=== PATIENT | male | born 1955 | race Caucasian/White ===

== ENCOUNTER 2017-01-07 06:29 | Emergency (ER) | payer MEDICAID ==
[2017-01-07] MEDS ORDERED: Sodium Chloride 0.9% 10 ML Syringe FLUSH PRN ×2 (07:43→09:18)
[2017-01-07] MEDS ORDERED: Sodium Chloride 0.9% 1,000 ML IV SCH (07:45)
--- NOTE | 2017-01-07 09:14 | CR ---
Chest 2V HISTORY: Chest pain. Comparison: None. FINDINGS: Cardiac size and pulmonary vessels are normal. The lungs are clear. IMPRESSION: Negative chest.
[2017-01-07] MEDS ORDERED: Iopamidol 612 MG/ML 100 ML Bottle IV PRN (09:18)
[2017-01-07] MEDS ORDERED: Sodium Chloride 0.9% 100 ML IV SCH (09:30)
--- NOTE | 2017-01-07 10:24 | CT ---
Chest Abdomen Pelvis w Cont HISTORY: Weakness, weight loss. Dose: Total DLP 501 COMPARISON: None FINDINGS: Extensive diffuse emphysema. No dense consolidation and or effusion. No adenopathy. 5 mm d ensity right middle lobe indeterminate. Please follow Lazarus criteria below. The pancreas, adrenal glands and kidneys appear unremarkable. Liver demonstrates enlargement measuri ng 19 cm craniocaudal. Mild splenomegaly measuring 13.5 cm screening caudal. No bowel obstruction. C ommon bile duct measures 8 mm no intrahepatic bile duct dilatation. Moderate stool within the colon. Mild bladder wall thickening which is nonspecific. Moderate degenerative change within the spine. Impression: 1. Hepatosplenomegaly. 2. Extensive diffuse emphysema with small nodule right middle lobe. Follow Lazarus criteria below. Lazarus criteria: Solid nodules: Nodule size less than 6 mm * Single and multiple nodules in low risk patient: Romel routine follow-up * Single and multiple nodules in high risk patient:(S) CT at 12 months. Nodule size 6 to 8 mm * Single nodule in low risk patient: CT at 6-12 months, then consider CT at 18-24 months. * Multiple nodules in low risk patient: CT at 3-6 months, then consider CT at 18-24 months. * Single nodule in high risk patient: CT at 6-12 months, then CT at 18-24 months. * Multiple nodules in high risk patient: CT at 3-6 months, then CT at 18-24 months. Nodule size greater than 8 mm * Single nodule in both low and high risk patient: Consider CT, PET/CT, or tissue sampling at 3 mon ths. * Multiple nodules in low risk patient: CT at 3-6 months, then consider CT at 18-24 months. * Multiple nodules in high risk patient: CT at 3-6 months, then CT at 18-24 months. Subsolid nodules: * Nodule size less than 6 mm * Single groundglass, part solid: No routine follow-up. * Multiple: CT at 3-6 months. If stable consider CT at 2 and 4 years. * Nodule size greater than or equal to 6 mm. * Single groundglass: CT at 6-12 months to confirm persistence, then CT at every 2 years until 5 ye ars. * Single part solid: CT at 3-6 months to confirm persistence. If unchanged and solid component juan ins less than 6 mm, annual CT should be performed for 5 years. * Multiple: CT at 3-6 months. Subsequent management based on the most suspicious nodules. Implications for patient care 1. These guidelines applied to incidental nodules, which can be managed according to the specific re commendations. 2. These guidelines do not apply to patient's younger than 35 years, immunocompromised patients, or patients with cancer. 3. For lung cancer screening, adherence to the existing [employer] lung CT scan s creening reporting and data system (lung RADS )guidelines is recommended.
[2017-01-07 11:28] VITALS: BP 117/57
--- NOTE | 2017-01-07 12:55 | EDM.PDOC ---
ED HPI GENERAL MEDICAL PROBLEM - General Chief Complaint: General Stated Complaint: WEAK Time Seen by Provider: 01/07/17 07:18 Source of Information: Reports: Patient, Family (Was to the patient sons Derrick Owen who said he didn't know much about him and another son who actually works with the patient.) History Limitations: Reports: No Limitations - History of Present Illness INITIAL COMMENTS - FREE TEXT/NARRATIVE: This is a 61-year-old white male here because of weakness. 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 His son said that yesterday he seemed to sort of fade out while they were working. He thought his father was dehydrated. He hasn't been drinking much water very much the patient says he eats every day however and drinks plenty. He's wondering if maybe he had a fever. Son thinks he doesn't take in very much and was exhausted yesterday. Later the history was given that he couldn't get off the toilet this morning. His son said that he's lost 10 or 15 pounds in the past 2 weeks. The patient admits to not eating or drinking very much. He says otherwise he feels like he's okay. He denies any alcohol use. He denies any pain anywhere. The history was also given to the nurses that he just isn't taking care of himself anymore. - Related Data Allergies Allergy/AdvReac Type Severity Reaction Status Date / Time No Known Allergies Allergy Verified 01/07/17 07:00 Home Meds: Home Meds NK [No Known Home Meds] 01/07/17 [History] Past Medical History - Past Health History Medical/Surgical History: Denies Medical/Surgical History - Infectious Disease History Infectious Disease History: Reports: Chicken Pox, Measles, Mumps Social & Family History - Tobacco Use Smoking Status *Q: Current Every Day Smoker Years of Tobacco use: 50 Packs/Tins Daily: 0.5 - Caffeine Use Caffeine Use: Reports: Coffee, Soda - Recreational Drug Use Recreational Drug Use: Yes Drug Use in Last 12 Months: Yes Recreational Drug Type: Reports: Marijuana/Hashish Recreational Drug Use Frequency: Rarely ED ROS GENERAL - Review of Systems Review Of Systems: See Below Constitutional: Reports: Weakness HEENT: Reports: No Symptoms Respiratory: Reports: No Symptoms Cardiovascular: Reports: No Symptoms Endocrine: Reports: No Symptoms GI/Abdominal: Reports: No Symptoms : Reports: No Symptoms Musculoskeletal: Reports: No Symptoms Skin: Reports: No Symptoms Neurological: Reports: No Symptoms Psychiatric: Reports: No Symptoms Hematologic/Lymphatic: Reports: No Symptoms Immunologic: Reports: No Symptoms ED EXAM, GENERAL - Physical Exam Exam: See Below Exam Limited By: No Limitations General Appearance: Alert, Thin (He is thin but muscular), Other (He is a moderately disheveled individual however on exam he looks more like a working man who just hasn't bathed in a day or 2.) Eye Exam: Bilateral Eye: EOMI, Normal Inspection, PERRL Ears: Normal External Exam Nose: Normal Inspection Throat/Mouth: Normal Inspection, Normal Oropharynx (Mucous membranes are moist) Head: Atraumatic Neck: Normal Inspection, Supple, Non-Tender Respiratory/Chest: Lungs Clear, Normal Breath Sounds Cardiovascular: Normal Peripheral Pulses, Regular Rate, Rhythm, No Murmur GI/Abdominal: Soft, Non-Tender Back Exam: Normal Inspection Extremities: Normal Inspection Neurological: Alert (He is alert speaks in a normal voice. There's no evidence of any lethargy.), Oriented, CN II-XII Intact, Normal Cognition, No Motor/ Sensory Deficits, Other Psychiatric: Normal Affect, Normal Mood Skin Exam: Warm, Dry, Intact, Normal Color Course - Vital Signs Last Recorded V/S: Last Vital Signs Temp 36.6 C 01/07/17 11:27 Pulse 76 01/07/17 11:27 Resp 14 01/07/17 11:27 BP 117/57 L 01/07/17 11:27 Pulse Ox 93 L 01/07/17 11:27 - Orders/Labs/Meds Orders: Active Orders 24 hr Category Date Time Status EKG Documentation Completion [RC] ASDIRECTED Care 01/07/17 07:43 Active Saline Lock Insert [OM.PC] Urgent Oth 01/07/17 07:43 Ordered EKG 12 Lead [EK] Urgent Ther 01/07/17 07:43 Ordered Labs: Laboratory Tests 01/07/17 01/07/17 01/07/17 Range/Units 07:43 07:57 07:57 WBC 12.4 H (4.5-11.0) K/uL RBC 4.13 L (4.30-5.90) M/uL Hgb 12.0 (12.0-15.0) g/dL Hct 36.5 L (40.0-54.0) % MCV 88 (80-98) fL MCH 29 (27-31) pg MCHC 33 (32-36) % Plt Count 256 (150-400) K/uL Neut % (Auto) 86 H (36-66) % Lymph % (Auto) 8 L (24-44) % Merrick % (Auto) 6 (2-6) % Eos % (Auto) 0 L (2-4) % Baso % (Auto) 0 (0-1) % Sodium 130 L (140-148) mmol/L Potassium 3.7 (3.6-5.2) mmol/L Chloride 94 L (100-108) mmol/L Carbon Dioxide 27 (21-32) mmol/L Anion Gap 12.7 (5.0-14.0) mmol/L BUN 18 (7-18) mg/dL Creatinine 1.1 (0.8-1.3) mg/dL Est Cr Clr Drug Dosing 64.41 mL/min Estimated GFR (MDRD) > 60 (>60) Glucose 125 H (74-106) mg/dL Calcium 8.3 L (8.5-10.1) mg/dL Total Bilirubin 0.7 (0.2-1.0) mg/dL AST 43 H (15-37) U/L ALT 45 (12-78) U/L Alkaline Phosphatase 101 (46-116) U/L Troponin I (0.000-0.056) ng/mL Total Protein 7.1 (6.4-8.2) g/dL Albumin 3.0 L (3.4-5.0) g/dL Globulin 4.1 H (2.3-3.5) g/dL Albumin/Globulin Ratio 0.7 L (1.2-2.2) Urine Color Yellow Urine Appearance Slightly cloudy Urine pH 5.0 (4.5-8.0) Ur Specific [place] 1.020 (1.008-1.030) Urine Protein 30 H (NEGATIVE) mg/dL Urine Glucose (UA) Normal (NEGATIVE) mg/dL Urine Ketones Negative (NEGATIVE) mg/dL Urine Occult Blood Large (NEGATIVE) Urine Nitrite Negative (NEGAITVE) Urine Bilirubin Small (NEGATIVE) Urine Urobilinogen 1 (NORMAL) mg/dL Ur Leukocyte Esterase Negative (NEGATIVE) Urine RBC 5-10 H (0-5) Urine WBC 0-5 (0-5) Ur Epithelial Cells Not seen Amorphous Sediment Moderate Urine Bacteria Not seen Urine Mucus Few 01/07/17 Range/Units 09:12 WBC (4.5-11.0) K/uL RBC (4.30-5.90) M/uL Hgb (12.0-15.0) g/dL Hct (40.0-54.0) % MCV (80-98) fL MCH (27-31) pg MCHC (32-36) % Plt Count (150-400) K/uL Neut % (Auto) (36-66) % Lymph % (Auto) (24-44) % Merrick % (Auto) (2-6) % Eos % (Auto) (2-4) % Baso % (Auto) (0-1) % Sodium (140-148) mmol/L Potassium (3.6-5.2) mmol/L Chloride (100-108) mmol/L Carbon Dioxide (21-32) mmol/L Anion Gap (5.0-14.0) mmol/L BUN (7-18) mg/dL Creatinine (0.8-1.3) mg/dL Est Cr Clr Drug Dosing mL/min Estimated GFR (MDRD) (>60) Glucose (74-106) mg/dL Calcium (8.5-10.1) mg/dL Total Bilirubin (0.2-1.0) mg/dL AST (15-37) U/L ALT (12-78) U/L Alkaline Phosphatase (46-116) U/L Troponin I 0.070 H* (0.000-0.056) ng/mL Total Protein (6.4-8.2) g/dL Albumin (3.4-5.0) g/dL Globulin (2.3-3.5) g/dL Albumin/Globulin Ratio (1.2-2.2) Urine Color Urine Appearance Urine pH (4.5-8.0) Ur Specific [place] (1.008-1.030) Urine Protein (NEGATIVE) mg/dL Urine Glucose (UA) (NEGATIVE) mg/dL Urine Ketones (NEGATIVE) mg/dL Urine Occult Blood (NEGATIVE) Urine Nitrite (NEGAITVE) Urine Bilirubin (NEGATIVE) Urine Urobilinogen (NORMAL) mg/dL Ur Leukocyte Esterase (NEGATIVE) Urine RBC (0-5) Urine WBC (0-5) Ur Epithelial Cells Amorphous Sediment Urine Bacteria Urine Mucus Meds: Medications Discontinued Medications Generic Name Dose Route Start Last Admin Trade Name Freq PRN Reason Stop Dose Admin Sodium Chloride 1,000 mls @ 999 mls/hr 01/07/17 07:45 01/07/17 07:59 Normal Saline IV 999 mls/hr ASDIRECTED KASSIDY Administration Sodium Chloride 100 mls @ 3.5 mls/sec 01/07/17 09:30 01/07/17 09:29 Normal Saline IV 01/07/17 23:00 3 mls/sec ASDIRECTED KASSIDY Administration Iopamidol 100 ml 01/07/17 09:18 01/07/17 09:29 Isovue-300 (61%) IV 01/08/17 09:19 100 ml . DIRECTED PRN Administration RADIOLOGY EXAM Sodium Chloride 10 ml 01/07/17 07:43 01/07/17 07:59 Saline Flush FLUSH 10 ml ASDIRECTED PRN Administration Keep Vein Open Sodium Chloride 10 ml 01/07/17 09:18 01/07/17 09:26 Saline Flush FLUSH 01/07/17 23:00 10 ml ASDIRECTED PRN Administration Keep Vein Open - Re-Assessments/Exams Free Text/Narrative Re-Assessment/Exam: 01/07/17 17:37 Orthostatics were negative on this patient. The nurse noted that he walked around without any difficulties. 01/07/17 17:40 An EKG shows normal sinus rhythm 76 beats per minute there is an occasional PAC. There is voltage criteria for LVH. I do not see any ST elevation. An IV was established he was given 1 L of IV normal saline as a bolus. Afterwards labs were evaluated and I don't see any pre-renal azotemia. A chest x-ray appeared to indicate COPD changes but no evidence of any infiltrate. Because of the patient's history of weight loss as well as hematuria and his smoking history and the fact that he probably will not get close followup we went ahead and did an chest abdomen and pelvic CT. CT showed some hepatosplenomegaly to extensive diffuse emphysema and a small nodule in the right middle lobe. That nodule was 5 mm and it was recommended that a CT repeated be repeated in about 6 months. All labs and CT were reviewed with the patient. The most significant thing that I see is the hematuria. I believe the patient needs a cystoscopy. Despite normal labs and a negative orthostatic test I think the patient probably has a little bit volume depleted. He's received some IV saline. My recommendation is that he increase his both food and water intake. I don't think he needs hospitalization. The patient's treatment course was prolonged due to to a heavy patient load in conjunction with a computer failure. At the time of his discharge the patient was very anxious to leave. The reason for his weakness is not entirely determined other than possibly some volume depletion. It's important that he have close followup in the near future. Departure - Departure Time of Disposition: 12:53 Disposition: Home, Self-Care 01 Condition: fair Clinical Impression: Weight loss, Hematuria, Pulmonary nodule - Discharge Information Instructions: Pulmonary Nodule, [id number], Hematuria, Adult Referrals: PCP,None [Primary Care Provider] - Forms: ED Department Discharge Additional Instructions: Be sure to eat a well-balanced diet and drink plenty of fluids. There was a small amount of blood in your urine and this needs to be checked out. You should either see a urologist or followup with a family Dr. There is a small nodule in one of your lungs and the chest CT needs to be repeated in about 6 months. - My Orders Last 24 Hours: My Active Orders 01/07/17 07:43 EKG Documentation Completion [RC] ASDIRECTED Saline Lock Insert [OM.PC] Urgent EKG 12 Lead [EK] Urgent - Assessment/Plan Last 24 Hours: My Active Orders 01/07/17 07:43 EKG Documentation Completion [RC] ASDIRECTED Saline Lock Insert [OM.PC] Urgent EKG 12 Lead [EK] Urgent
== END 2017-01-07 13:15 | disposition home or self-care (01) ==
LOC: JP.ED 06:29
DX: R63.4 Abnormal weight loss (principal); R31.9 Hematuria, unspecified; R91.1 Solitary pulmonary nodule; F17.210 Nicotine dependence, cigarettes, uncomplicated
CPT/HCPCS: 36415; 71020; 71260; 74177; 80053; 81001; 84484; 85025; 93005; 96360; 96361; 99285; J7030; J7040; J7050; Q9967

== ENCOUNTER 2017-01-11 19:40 | Observation (INO) | payer MEDICAID ==
[2017-01-11] MEDS ORDERED: Sodium Chloride 0.9% 10 ML Syringe FLUSH PRN (19:51)
[2017-01-11] MEDS ORDERED: Diltiazem 25 MG/5 ML SDV IVPUSH ONE (19:54)
--- NOTE | 2017-01-11 19:57 | EDM.PDOC ---
ED HPI GENERAL MEDICAL PROBLEM - General Chief Complaint: Cardiovascular Problem Stated Complaint: [facility] Time Seen by Provider: 01/11/17 19:50 Source of Information: Reports: Patient, EMS, Family, Old Records History Limitations: Reports: Altered Mental Status - History of Present Illness INITIAL COMMENTS - FREE TEXT/NARRATIVE: 61-year-old gentleman presents emergency department today with complaint of fevers and not feeling well, he was brought in by EMS services. He was evaluated in the emergency department a couple days ago for weight loss evaluation at that time included a CT scan which did show pulmonary nodules unclear etiology. Over the last couple days he is progressively gotten more weak and feverish has had a cough denies chest pain or shortness of breath is confused has difficulty remembering details difficult to obtain review of systems. - Related Data Allergies Allergy/AdvReac Type Severity Reaction Status Date / Time No Known Allergies Allergy Verified 01/07/17 07:00 Home Meds: Home Meds NK [No Known Home Meds] 01/07/17 [History] Past Medical History - Past Health History Medical/Surgical History: Denies Medical/Surgical History - Infectious Disease History Infectious Disease History: Reports: Chicken Pox, Measles, Mumps Social & Family History - Tobacco Use Smoking Status *Q: Current Every Day Smoker Years of Tobacco use: 50 Packs/Tins Daily: 0.5 - Caffeine Use Caffeine Use: Reports: Coffee, Soda - Recreational Drug Use Recreational Drug Use: Yes Drug Use in Last 12 Months: Yes Recreational Drug Type: Reports: Marijuana/Hashish Recreational Drug Use Frequency: Rarely ED ROS GENERAL - Review of Systems Review Of Systems: Unable To Obtain (Confusion) ED EXAM, GENERAL - Physical Exam Exam: See Below Free Text/Narrative:: General: Male, disheveled, appears older than stated age, confused is aware of his name, not in any distress HEENT: head is atraumatic normocephalic, eyes pupils equal round reactive to light, sclera clear no conjunctivitis appreciated. Ears tympanic membranes clear and maciel landmarks and light reflex are present bilaterally canals are clear. Nose no septal deviation, nares are clear, no blood present. Mouth mucosa is dry and pink no erythema or exudate noted in soft palate, tongue is midline uvula is midline, dentition is intact. Neck: Supple no thyromegaly no tracheal deviation. Nodes: Cervical nodes subclavicular nodes nontender no palpable lymphadenopathy noted. Lungs: clear to auscultation bilaterally with symmetrical respirations, no adventitious noise appreciated. CV: Tachycardic rate and rhythm S1 and S2 appreciated no murmurs rubs or gallops noted. Abdomen: Soft, nontender, no palpable masses or organomegaly appreciated, no distention no guarding bowel sounds are present, . Neuro: Cranial nerves II through XII grossly intact Skin: Warm and dry, intact Extremities: No lower extremity edema appreciated, pedal pulse is +2. Course - Vital Signs Last Recorded V/S: Last Vital Signs Temp 100.8 F H 01/11/17 20:41 Pulse 161 H 01/11/17 20:41 Resp 20 01/11/17 20:41 BP 100/62 01/11/17 20:41 Pulse Ox 95 01/11/17 20:41 - Orders/Labs/Meds Orders: Active Orders 24 hr Category Date Time Status Patient Status [ADT] Routine ADT 01/11/17 21:08 Active EKG Documentation Completion [RC] ASDIRECTED Care 01/11/17 19:53 Active Height and Weight [RC] DAILY Care 01/11/17 21:08 Active Intake and Output [RC] QSHIFT Care 01/11/17 21:09 Active Oxygen Therapy [RC] PRN Care 01/11/17 21:08 Active Peripheral IV Care [RC] . DIRECTED Care 01/11/17 19:52 Active Up to Chair [RC] QID Care 01/11/17 21:08 Active VTE/DVT Education [RC] Per Unit Routine Care 01/11/17 21:08 Active Vital Signs [RC] Q4H Care 01/11/17 21:08 Active Regular Diet [DIET] Diet 01/11/17 Breakfast Active Chest 1V Frontal [CR] Urgent Exams 01/11/17 19:51 Taken BABESIA MICROTI IGG AND IGM [REF] Urgent Lab 01/11/17 20:56 Ordered CLOSTRIDIUM DIFFICILE BY PCR [RM] Stat Lab 01/11/17 20:30 Uncollected CULTURE BLOOD [BC] Urgent Lab 01/11/17 19:55 Received CULTURE BLOOD [BC] Urgent Lab 01/11/17 20:05 Received DRUG SCREEN, URINE [URCHEM] Stat Lab 01/11/17 20:30 Uncollected EHRLICHIA CHAFFEENSIS, IGG&IGM [REF] Urgent Lab 01/11/17 20:56 Ordered LYME AB SCREEN RFLX [REF] Urgent Lab 01/11/17 20:56 Ordered PATHOLOGIST'S DIFFERENTIAL [REF] Stat Lab 01/11/17 20:37 Ordered UA W/MICROSCOPIC [URIN] Stat Lab 01/11/17 19:51 Uncollected Azithromycin [Zithromax] 500 mg Med 01/11/17 20:59 Ordered Sodium Chloride 0.9% [Normal Saline] 250 ml IV ONETIME Diltiazem [Cardizem] 100 mg Med 01/11/17 20:00 Active Sodium Chloride 0.9% [Normal Saline] 100 ml IV TITRATE Lactated Ringers [Ringers, Lactated] 1,000 ml Med 01/11/17 20:00 Active IV ASDIRECTED Lactated Ringers [Ringers, Lactated] 1,000 ml Med 01/11/17 20:58 Ordered IV BOLUS Sodium Chloride 0.9% [Saline Flush] Med 01/11/17 19:51 Active 10 ml FLUSH ASDIRECTED PRN cefTRIAXone [Rocephin] 2 gm Med 01/11/17 20:57 Ordered Sodium Chloride 0.9% [Normal Saline] 50 ml IV ONETIME Blood Culture x2 Reflex Set [OM.PC] Urgent Oth 01/11/17 19:51 Ordered Peripheral IV Insertion Adult [OM.PC] Stat Oth 01/11/17 19:51 Ordered Resuscitation Status Routine Resus Stat 01/11/17 21:08 Ordered EKG 12 Lead [EK] Urgent Ther 01/11/17 19:51 Ordered Medication Orders Lactated Ringer's (Ringers, Lactated) 1,000 mls @ 999 mls/hr IV ASDIRECTED KASSIDY Last Admin: 01/11/17 20:04 Dose: 999 mls/hr Diltiazem HCl 100 mg/ Sodium (Chloride) 100 mls @ 5 mls/hr IV TITRATE KASSIDY; 5 MG /HR PRN Reason: Protocol Last Admin: 01/11/17 20:18 Dose: 5 mg/hr, 5 mls/hr Ceftriaxone Sodium 2 gm/ (Sodium Chloride) 50 mls @ 100 mls/hr IV ONETIME ONE Stop: 01/11/17 21:26 Last Admin: 01/11/17 21:09 Dose: 100 mls/hr Lactated Ringer's (Ringers, Lactated) 1,000 mls @ 999 mls/hr IV BOLUS ONE Stop: 01/11/17 21:58 Last Admin: 01/11/17 21:07 Dose: 999 mls/hr Azithromycin 500 mg/ Sodium (Chloride) 250 mls @ 250 mls/hr IV ONETIME ONE Stop: 01/11/17 21:58 Sodium Chloride (Saline Flush) 10 ml FLUSH ASDIRECTED PRN PRN Reason: Keep Vein Open Last Admin: 01/11/17 20:08 Dose: 10 ml Labs: Laboratory Tests 01/11/17 01/11/17 01/11/17 Range/Units 19:55 19:55 19:55 WBC 10.9 (4.5-11.0) K/uL RBC 3.88 L (4.30-5.90) M/uL Hgb 11.4 L (12.0-15.0) g/dL Hct 32.2 L (40.0-54.0) % MCV 83 (80-98) fL MCH 29 (27-31) pg MCHC 35 (32-36) % Plt Count 48 L (150-400) K/uL Add Manual Diff Yes Neutrophils % (Manual) 57 (36-66) % Band Neutrophils % 8 (5-11) % Lymphocytes % (Manual) 20 L (24-44) % Monocytes % (Manual) 15 H (2-6) % Polychromasia PT 11.4 (9.5-12.0) sec INR 1.07 (0.80-1.20) APTT 33.3 (27.0-36.0) sec Sodium 128 L (140-148) mmol/L Potassium 3.8 (3.6-5.2) mmol/L Chloride 93 L (100-108) mmol/L Carbon Dioxide 25 (21-32) mmol/L Anion Gap 13.8 (5.0-14.0) mmol/L BUN 29 H D (7-18) mg/dL Creatinine 1.1 (0.8-1.3) mg/dL Est Cr Clr Drug Dosing 64.41 mL/min Estimated GFR (MDRD) > 60 (>60) Glucose 110 H (74-106) mg/dL Lactic Acid (0.4-2.0) mmol/L Calcium 8.3 L (8.5-10.1) mg/dL Phosphorus 1.7 L (2.5-4.9) mg/dL Magnesium 2.1 (1.8-2.4) mg/dL Total Bilirubin 2.7 H D (0.2-1.0) mg/dL AST 445 H D (15-37) U/L ALT 129 H (12-78) U/L Alkaline Phosphatase 188 H D (46-116) U/L Ammonia (11-32) mmol/L Troponin I 0.036 (0.000-0.056) ng/mL C-Reactive Protein 14.65 H (0.0-0.3) mg/dL Total Protein 5.7 L (6.4-8.2) g/dL Albumin 2.2 L (3.4-5.0) g/dL Globulin 3.5 (2.3-3.5) g/dL Albumin/Globulin Ratio 0.6 L (1.2-2.2) Lipase 440 H (73-393) U/L TSH, Ultra Sensitive 2.474 (0.358-3.740) uIU/mL 01/11/17 01/11/17 Range/Units 19:55 19:55 WBC (4.5-11.0) K/uL RBC (4.30-5.90) M/uL Hgb (12.0-15.0) g/dL Hct (40.0-54.0) % MCV (80-98) fL MCH (27-31) pg MCHC (32-36) % Plt Count (150-400) K/uL Add Manual Diff Neutrophils % (Manual) (36-66) % Band Neutrophils % (5-11) % Lymphocytes % (Manual) (24-44) % Monocytes % (Manual) (2-6) % Polychromasia PT (9.5-12.0) sec INR (0.80-1.20) APTT (27.0-36.0) sec Sodium (140-148) mmol/L Potassium (3.6-5.2) mmol/L Chloride (100-108) mmol/L Carbon Dioxide (21-32) mmol/L Anion Gap (5.0-14.0) mmol/L BUN (7-18) mg/dL Creatinine (0.8-1.3) mg/dL Est Cr Clr Drug Dosing mL/min Estimated GFR (MDRD) (>60) Glucose (74-106) mg/dL Lactic Acid 3.0 H (0.4-2.0) mmol/L Calcium (8.5-10.1) mg/dL Phosphorus (2.5-4.9) mg/dL Magnesium (1.8-2.4) mg/dL Total Bilirubin (0.2-1.0) mg/dL AST (15-37) U/L ALT (12-78) U/L Alkaline Phosphatase (46-116) U/L Ammonia 1 L (11-32) mmol/L Troponin I (0.000-0.056) ng/mL C-Reactive Protein (0.0-0.3) mg/dL Total Protein (6.4-8.2) g/dL Albumin (3.4-5.0) g/dL Globulin (2.3-3.5) g/dL Albumin/Globulin Ratio (1.2-2.2) Lipase (73-393) U/L TSH, Ultra Sensitive (0.358-3.740) uIU/mL Meds: Medications Generic Name Dose Route Start Last Admin Trade Name Freq PRN Reason Stop Dose Admin Lactated Ringer's 1,000 mls @ 999 mls/hr 01/11/17 20:00 01/11/17 20:04 Ringers, Lactated IV 999 mls/hr ASDIRECTED KASSIDY Administration Diltiazem HCl 100 mg/ Sodium 100 mls @ 5 mls/hr 01/11/17 20:00 01/11/17 20:18 Chloride IV 5 mg/hr TITRATE KASSIDY 5 mls/hr Protocol Administration 5 MG/HR Ceftriaxone Sodium 2 gm/ 50 mls @ 100 mls/hr 01/11/17 20:57 01/11/17 21:09 Sodium Chloride IV 01/11/17 21:26 100 mls/hr ONETIME ONE Administration Lactated Ringer's 1,000 mls @ 999 mls/hr 01/11/17 20:58 01/11/17 21:07 Ringers, Lactated IV 01/11/17 21:58 999 mls/hr BOLUS ONE Administration Azithromycin 500 mg/ Sodium 250 mls @ 250 mls/hr 01/11/17 20:59 Chloride IV 01/11/17 21:58 ONETIME ONE Sodium Chloride 10 ml 01/11/17 19:51 01/11/17 20:08 Saline Flush FLUSH 10 ml ASDIRECTED PRN Administration Keep Vein Open Discontinued Medications Generic Name Dose Route Start Last Admin Trade Name Freq PRN Reason Stop Dose Admin Diltiazem HCl 25 mg 01/11/17 19:54 01/11/17 20:09 Diltiazem IVPUSH 01/11/17 19:55 25 mg ONETIME ONE Administration Departure - Departure Time of Disposition: 21:17 Disposition: Admitted As Inpatient 65 Condition: fair Clinical Impression: New onset atrial fibrillation Sepsis Qualifiers: Sepsis type: sepsis due to unspecified organism Qualified Code(s): A41.9 - Sepsis, unspecified organism Forms: ED Department Discharge - My Orders Last 24 Hours: My Active Orders 01/11/17 19:51 Chest 1V Frontal [CR] Urgent UA W/MICROSCOPIC [URIN] Stat Sodium Chloride 0.9% [Saline Flush] 10 ml FLUSH ASDIRECTED PRN Blood Culture x2 Reflex Set [OM.PC] Urgent Peripheral IV Insertion Adult [OM.PC] Stat EKG 12 Lead [EK] Urgent 01/11/17 19:52 Peripheral IV Care [RC] . DIRECTED 01/11/17 19:53 EKG Documentation Completion [RC] ASDIRECTED 01/11/17 19:55 CULTURE BLOOD [BC] Urgent 01/11/17 20:00 Diltiazem [Cardizem] 100 mg Sodium Chloride 0.9% [Normal Saline] 100 ml IV TITRATE Lactated Ringers [Ringers, Lactated] 1,000 ml IV ASDIRECTED 01/11/17 20:05 CULTURE BLOOD [BC] Urgent 01/11/17 20:30 CLOSTRIDIUM DIFFICILE BY PCR [RM] Stat DRUG SCREEN, URINE [URCHEM] Stat 01/11/17 20:37 PATHOLOGIST'S DIFFERENTIAL [REF] Stat 01/11/17 20:56 BABESIA MICROTI IGG AND IGM [REF] Urgent EHRLICHIA CHAFFEENSIS, IGG&IGM [REF] Urgent LYME AB SCREEN RFLX [REF] Urgent 01/11/17 20:57 cefTRIAXone [Rocephin] 2 gm Sodium Chloride 0.9% [Normal Saline] 50 ml IV ONETIME 01/11/17 20:58 Lactated Ringers [Ringers, Lactated] 1,000 ml IV BOLUS 01/11/17 20:59 Azithromycin [Zithromax] 500 mg Sodium Chloride 0.9% [Normal Saline] 250 ml IV ONETIME 01/11/17 21:08 Patient Status [ADT] Routine Height and Weight [RC] DAILY Oxygen Therapy [RC] PRN Up to Chair [RC] QID VTE/DVT Education [RC] Per Unit Routine Vital Signs [RC] Q4H Resuscitation Status Routine 01/11/17 21:09 Intake and Output [RC] QSHIFT 01/11/17 Breakfast Regular Diet [DIET] - Assessment/Plan Last 24 Hours: My Active Orders 01/11/17 19:51 Chest 1V Frontal [CR] Urgent UA W/MICROSCOPIC [URIN] Stat Sodium Chloride 0.9% [Saline Flush] 10 ml FLUSH ASDIRECTED PRN Blood Culture x2 Reflex Set [OM.PC] Urgent Peripheral IV Insertion Adult [OM.PC] Stat EKG 12 Lead [EK] Urgent 01/11/17 19:52 Peripheral IV Care [RC] . DIRECTED 01/11/17 19:53 EKG Documentation Completion [RC] ASDIRECTED 01/11/17 19:55 CULTURE BLOOD [BC] Urgent 01/11/17 20:00 Diltiazem [Cardizem] 100 mg Sodium Chloride 0.9% [Normal Saline] 100 ml IV TITRATE Lactated Ringers [Ringers, Lactated] 1,000 ml IV ASDIRECTED 01/11/17 20:05 CULTURE BLOOD [BC] Urgent 01/11/17 20:30 CLOSTRIDIUM DIFFICILE BY PCR [RM] Stat DRUG SCREEN, URINE [URCHEM] Stat 01/11/17 20:37 PATHOLOGIST'S DIFFERENTIAL [REF] Stat 01/11/17 20:56 BABESIA MICROTI IGG AND IGM [REF] Urgent EHRLICHIA CHAFFEENSIS, IGG&IGM [REF] Urgent LYME AB SCREEN RFLX [REF] Urgent 01/11/17 20:57 cefTRIAXone [Rocephin] 2 gm Sodium Chloride 0.9% [Normal Saline] 50 ml IV ONETIME 01/11/17 20:58 Lactated Ringers [Ringers, Lactated] 1,000 ml IV BOLUS 01/11/17 20:59 Azithromycin [Zithromax] 500 mg Sodium Chloride 0.9% [Normal Saline] 250 ml IV ONETIME 01/11/17 21:08 Patient Status [ADT] Routine Height and Weight [RC] DAILY Oxygen Therapy [RC] PRN Up to Chair [RC] QID VTE/DVT Education [RC] Per Unit Routine Vital Signs [RC] Q4H Resuscitation Status Routine 01/11/17 21:09 Intake and Output [RC] QSHIFT 01/11/17 Breakfast Regular Diet [DIET] Plan: Assessment Acuity = acute Site and laterality = new onset atrial fibrillation with rapid ventricular response complicated with early sepsis Etiology = suspicious for tickborne illness Manifestations = fever, tachycardia, weakness, confusion Location of injury = home Lab values = WBC 12.44 days ago now 10.9 hemoglobin 11.4 consistent normochromic anemia sodium low at 129 consistent hyponatremia lactic acid elevated at 3.0 consistent lactic acidosis AST 43 4 days ago now 445 ALTs 45 4 days ago now 129 consistent with elevated liver enzymes, albumin low at 2.2 consistent hypoalbuminemia CRP elevated at 14.65, thyroid 2.47 consistent with euthymic, blood cultures pending urinalysis pending chest x-ray I did review films myself I cannot appreciate any acute process, the official read from radiology is pending, EKG initially shows atrial fibrillation Plan Called and discussed case with Dr. Trevizo attending consultant internship currently agreed to come and evaluate the patient in the hospital because he is on a Cardizem drip for his atrial fibrillation he'll be placed in the intensive care unit antibiotics of Rocephin and a azithromycin were initiated . This note was dictated using [employer] voice recognition software please call with any questions.
[2017-01-11] MEDS: Lactated Ringers 1,000 ML IV SCH ×2 (20:04→22:18)
[2017-01-11] MEDS: Diltiazem 100 MG in Sodium Chloride 0.9% 100 ML IV SCH (20:18)
[2017-01-11] MEDS ORDERED: cefTRIAXone 2 GM in Sodium Chloride 0.9% 50 ML IV ONE (20:57)
[2017-01-11] MEDS ORDERED: Lactated Ringers 1,000 ML IV ONE (20:58)
[2017-01-11] MEDS ORDERED: Azithromycin 500 MG in Sodium Chloride 0.9% 250 ML IV ONE (20:59)
[2017-01-11] MEDS ORDERED: Acetaminophen 325 MG Tab PO PRN (23:13)
[2017-01-11] MEDS ORDERED: Acetaminophen 325 MG Tab ONE (23:24)
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
[2017-01-12] MEDS: Lactated Ringers 1,000 ML IV SCH ×3 (04:27→18:40)
--- NOTE | 2017-01-12 08:17 | PN ---
DATE OF SERVICE: 01/12/2017 SUBJECTIVE: A 61-year-old male was admitted yesterday evening with a 2-week history of confusion, weakness, weight loss and noted fever with suspected sepsis and potential tick borne disease. Labs were drawn. He was admitted to the intensive care unit with atrial fibrillation with rapid ventricular rate noted. IV diltiazem drip has been maintained through the nighttime hours. He slept soundly. He denies pain. No nausea or emesis. He is taking fluids well. Voiding dark-appearing urine without evidence of hematuria. Offers, no new complaints today. OBJECTIVE: VITAL SIGNS: Temperature this a.m. remains mildly elevated at 38.2, pulse rate 102 with atrial fibrillation on cardiac monitoring, respiratory rate 21, blood pressure 104/63, O2 sats 94% with supplemental O2. NECK: Brisk, irregular carotid pulses. No nuchal rigidity. LUNGS: Clear. HEART: Irregular with a borderline tachycardia. No murmurs or gallops noted. ABDOMEN: Soft and nontender. No obvious organomegaly. No guarding, rebound or referred pain. EXTREMITIES: Warm and pink. No tremor. No rashes. Good arterial pulses. Brisk capillary refill. LABORATORY FINDINGS: Obtained during the urgent care physician assistant hours include a urinalysis with a specific gravity of 1.015, positive rbcs, bilirubin on dipstick negative, leukocyte esterase negative. Microscopic portion, urine drug screen was positive for THC, opiates and methamphetamines. Followup CBC and metabolic panel are pending this a.m. IMPRESSION: Febrile presentation, consider early sepsis with source unknown versus tick borne infection, most likely possibility with elevated liver enzymes and thrombocytopenia, would be anaplasmosis. We will continue with antibiotic therapies. He has lab studies for tick-borne illnesses pending. Repeat general chemistries to review liver functions as well as followup CBC this morning is requested in light of positive drug screen. Hepatitis panel to review for potential infectious hepatitis is requested. Additionally, abdominal ultrasound to screen for a sonographic liver disease was requested. We will allow diet as tolerated. Follow up on completion of labs. Devaughn Trevizo MD /[id number]
--- NOTE | 2017-01-12 08:58 | US ---
Abdominal ultrasound The liver is homogeneous. No focal hepatic lesions are demonstrated. The gallbladder demonstrates mi ld sludge. The gallbladder is not well distended. There is no pain with palpation of the gallbladder . The common bile duct measures 8 mm. The pancreas is unremarkable. The right kidney measures 12.6 c m in length and the left kidney 11.7 cm. The spleen measures 13.3 cm. The IVC is patent. There is he patopedal flow within the portal vein. The aorta is normal in caliber. Impression: 1. Mild gallbladder sludge. 2. Otherwise negative exam.
--- NOTE | 2017-01-12 08:59 | CR ---
Chest 1V Frontal FINDINGS: The heart and vascular structures are normal in appearance. No infiltrates or effusions ar e demonstrated. The skeletal structures are unremarkable. IMPRESSION: Negative exam.
[2017-01-12] MEDS ORDERED: Azithromycin 250 MG Tab PO SCH (09:00)
[2017-01-12] MEDS: Doxycycline 100 MG Cap PO SCH ×2 (09:04→20:17)
[2017-01-12] MEDS: Diltiazem 100 MG in Sodium Chloride 0.9% 100 ML IV SCH (13:44)
[2017-01-12] MEDS ORDERED: Nicotine 14 MG/24 Hr Patch TRDERM SCH (16:00)
[2017-01-12] MEDS: Diltiazem IR 30 MG Tab PO SCH ×2 (17:43→21:19)
[2017-01-12] MEDS ORDERED: cefTRIAXone 1 GM in Sodium Chloride 0.9% 50 ML IV SCH (20:00)
[2017-01-13] MEDS: Diltiazem IR 30 MG Tab PO SCH ×2 (04:03→09:40)
[2017-01-13] MEDS: Lactated Ringers 1,000 ML IV SCH (04:42)
[2017-01-13] MEDS: Doxycycline 100 MG Cap PO SCH (09:40)
--- NOTE | 2017-01-13 09:54 | PCM.DCSUM1 ---
Discharge Summary - Hospital Course Brief History: 61 yr old male with tobacco dependence who presented with fever, weight loss, confusion and recent tick bite. He was admitted for management of presumed tick borne disease. 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 Workup at that time included laboratory testing which was fairly unremarkable. A CT scan of the abdomen and pelvis was performed and showed mild Hepato-splenomegaly but no other acute findings. He received some fluids and felt better so he went home at that time. He returned on January 11 with ongoing fevers, weakness, confusion and weight loss. Workup at that time revealed mild leukocytosis and thrombocytopenia with a platelet count of 46,000. His AST was more than 400 and a LT was greater than 100. Bilirubin was elevated above 2. CRP was very elevated at more than 14. There was concern for potential tick borne disease with a high fever and tick bite about 2 weeks ago. He was started on antibiotics and IV fluids and admitted to the hospital. Serologies for anaplasmosis, Lyme disease and as well as acute hepatitis and a peripheral smear were collected and sent to an outside laboratory. He was also noted to be in atrial fibrillation with a rapid ventricular response at the time of presentation. For this he was started on a diltiazem infusion. He was admitted to the intensive care unit. His atrial fibrillation became very well rate controlled but he did remain in atrial fibrillation. We are able to transition to him to oral medications and he has been maintained with 30 mg of diltiazem every 6 hours. His fever curve has improved with some IV fluids. Unfortunately his white blood cell count has risen from 10,000 to 20,000 and now up to 24, 000. I did review the differential and slide with the hematology medical genetics director this morning. There is concern for smudge cells as well as lymphoblasts with a fairly abundant quantity. His abnormal hepatic panel tests are essentially stable but he has had a mild improvement in his bilirubin. With progressive B symptoms including fever, weight loss and fatigue in addition to concern for fairly quick elevation of his white blood cell count and significant quantity of blasts I'm concerned that he may be developing an acute phase of lymphoma. I think at this point he would benefit from urgent evaluation with hematology/oncology. I don't believe he is safe for outpatient management at this time and would benefit from inpatient management. I did discuss the case with Dr. Rodriguez at [facility] in [place]. He was agreeable to transfer and accepting of his care. We have had Derrick on diltiazem to help manage his paroxysmal atrial fibrillation. His CHADSS-VASC score is very low at this time and I don't believe he needs any anticoagulation at present. Transition to long-acting diltiazem could be considered with excellent rate control on 30 mg every 6 hours. We have had the patient on both doxycycline and ceftriaxone to cover for presumed tickborne disease though my suspicion is decreasing with this new information over the past 48 hours. His tick panel is pending at this time and results should be available or this afternoon tomorrow. There is also a peripheral smear which has been sent to a reference laboratory and is pending. The images from the CT scan of the abdomen and pelvis should be available on your PACS system. the study is date 01/07. - Patient Instructions Diet: Regular Diet as Tolerated Activity: As Tolerated Driving: Do Not Drive Showering/Bathing: May Shower Notify Provider of: Fever, Increased Pain, Nausea and/or Vomiting Other/Special Instructions: 1. Transfer to [facility] in [place], concern for blast crisis with lymphoblasts noted on differential - Dr Rodriguez accepting doctor - Discharge Plan Patient Handouts: Diltiazem tablets Referrals: PCP,None [Primary Care Provider] - - Discharge Summary/Plan Comment DC Time >30 min.: Yes (45 - transfer to [place] ) - Patient Data Vitals - Most Recent: Last Vital Signs Temp 36.7 C 01/13/17 08:00 Pulse 91 01/13/17 08:00 Resp 20 01/13/17 08:00 BP 110/68 01/13/17 08:00 Pulse Ox 98 01/13/17 08:00 Weight - Most Recent: 68.492 kg I&O - Last 24 hours: Intake & Output 01/12/17 01/13/17 01/13/17 22:59 06:59 14:59 Intake Total 2114 1155 180 Output Total 150 100 200 Balance 1964 1055 -20 Lab Results - Last 24 hrs: Laboratory Results - last 24 hr 01/13/17 01/13/17 Range/Units 08:00 08:00 WBC 24.7 H (4.5-11.0) K/uL RBC 3.98 L (4.30-5.90) M/uL Hgb 11.4 L (12.0-15.0) g/dL Hct 32.9 L (40.0-54.0) % MCV 83 (80-98) fL MCH 29 (27-31) pg MCHC 35 (32-36) % Plt Count 97 L (150-400) K/uL Neutrophils % (Manual) 41 (36-66) % Band Neutrophils % 4 L (5-11) % Lymphocytes % (Manual) 54 H (24-44) % Monocytes % (Manual) 0 L (2-6) % Eosinophils % (Manual) 1 L (2-4) % Basophils % (Manual) 0 (0-1) % Sodium 130 L (140-148) mmol/L Potassium 3.3 L (3.6-5.2) mmol/L Chloride 96 L (100-108) mmol/L Carbon Dioxide 28 (21-32) mmol/L Anion Gap 9.3 (5.0-14.0) mmol/L BUN 19 H (7-18) mg/dL Creatinine 0.8 (0.8-1.3) mg/dL Est Cr Clr Drug Dosing 92.75 mL/min Estimated GFR (MDRD) > 60 (>60) Glucose 114 H (74-106) mg/dL Calcium 7.9 L (8.5-10.1) mg/dL Total Bilirubin 1.8 H (0.2-1.0) mg/dL AST 443 H (15-37) U/L ALT 161 H (12-78) U/L Alkaline Phosphatase 189 H (46-116) U/L Total Protein 5.6 L (6.4-8.2) g/dL Albumin 1.9 L (3.4-5.0) g/dL Globulin 3.7 H (2.3-3.5) g/dL Albumin/Globulin Ratio 0.5 L (1.2-2.2) Med Orders - Current: Current Medications Acetaminophen (Tylenol) 650 mg PO Q4H PRN PRN Reason: Fever Last Admin: 01/11/17 23:27 Dose: 650 mg Diltiazem HCl (Cardizem) 30 mg PO Q6HR [facility] Last Admin: 01/13/17 09:40 Dose: 30 mg Doxycycline Hyclate (Vibramycin) 100 mg PO BID [facility] Last Admin: 01/13/17 09:40 Dose: 100 mg Ceftriaxone Sodium 1 gm/ (Sodium Chloride) 50 mls @ 100 mls/hr IV Q24H [facility] Last Admin: 01/12/17 19:44 Dose: 100 mls/hr Lactated Ringer's (Ringers, Lactated) 1,000 mls @ 100 mls/hr IV ASDIRECTED [facility] Last Admin: 01/13/17 04:42 Dose: 100 mls/hr Nicotine (Habitrol) 14 mg TRDERM Q24H [facility] Last Admin: 01/12/17 16:18 Dose: 14 mg Sodium Chloride (Saline Flush) 10 ml FLUSH ASDIRECTED PRN PRN Reason: Keep Vein Open Last Admin: 01/11/17 20:08 Dose: 10 ml Discontinued Medications Acetaminophen (Tylenol) Confirm Administered Dose 650 mg .ROUTE .STK-MED ONE Stop: 01/11/17 23:25 Last Admin: 01/11/17 23:36 Dose: Not Given Azithromycin (Zithromax) 250 mg PO DAILY [facility] Last Admin: 01/12/17 09:04 Dose: 250 mg Diltiazem HCl (Diltiazem) 25 mg IVPUSH ONETIME ONE Stop: 01/11/17 19:55 Last Admin: 01/11/17 20:09 Dose: 25 mg Lactated Ringer's (Ringers, Lactated) 1,000 mls @ 150 mls/hr IV ASDIRECTED [facility] Last Admin: 01/11/17 22:18 Dose: 150 mls/hr Diltiazem HCl 100 mg/ Sodium (Chloride) 100 mls @ 5 mls/hr IV TITRATE KASSIDY; 5 MG /HR PRN Reason: Protocol Last Admin: 01/12/17 13:44 Dose: 5 mg/hr, 5 mls/hr Ceftriaxone Sodium 2 gm/ (Sodium Chloride) 50 mls @ 100 mls/hr IV ONETIME ONE Stop: 01/11/17 21:26 Last Admin: 01/11/17 21:09 Dose: 100 mls/hr Lactated Ringer's (Ringers, Lactated) 1,000 mls @ 999 mls/hr IV BOLUS ONE Stop: 01/11/17 21:58 Last Admin: 01/11/17 21:07 Dose: 999 mls/hr Azithromycin 500 mg/ Sodium (Chloride) 250 mls @ 250 mls/hr IV ONETIME ONE Stop: 01/11/17 21:58 Last Admin: 01/11/17 21:54 Dose: 250 mls/hr Lactated Ringer's (Ringers, Lactated) 1,000 mls @ 150 mls/hr IV ASDIRECTED KASSIDY Last Admin: 01/12/17 11:37 Dose: 150 mls/hr *Q Meaningful Use (DIS) - VTE *Q VTE Criteria *Q: - Stroke *Q Stroke Criteria *Q: - AMI *Q AMI Criteria *Q:
[2017-01-13 12:57] VITALS: BP 121/79
== END 2017-01-13 15:38 ==
LOC: JP.ED 19:40 → JP.ICU 21:08
PROVIDERS: ADMIT Family Medicine; ATTEND Internal Medicine
DX: C92.10 Chronic myeloid leukemia, BCR/ABL-positive, not having achieved remission (principal); I48.91 Unspecified atrial fibrillation; R63.4 Abnormal weight loss; Z79.899 Other long term (current) drug therapy; F17.210 Nicotine dependence, cigarettes, uncomplicated
CPT/HCPCS: 36415; 71010; 76700; 80053; 80074; 80305; 81001; 82140; 83605; 83615; 83690; 83735; 84100; 84443; 84484; 85025; 85027; 85060; 85610; 85730; 86140; 86618; 86666; 86753; 87040; 93005; 96361; 96365; 96366; 96367; 96375; 96376; 99284; A9270; G0378; J0456; J0696; J7030; J7050; J7120; J3490

== ENCOUNTER 2025-07-07 16:53 | Emergency (ER) | payer SELFPAY ==
[2025-07-07 18:25] LABS: BASOPHILS ABSOLUTE AUTO 0.03 K/uL (0.00-0.10); BASOPHILS PERCENT AUTO 0.4 % (0.1-1.3); EOSINOPHILS ABSOLUTE AUTO 0.01 K/uL (0.00-0.40); EOSINOPHILS PERCENT AUTO 0.1 % (0.0-5.4); IMMATURE GRAN ABSOLUTE AUTO 0.04 K/uL (0.00-0.23); IMMATURE GRAN PERCENT AUTO 0.5 % (0.0-0.7); LYMPHOCYTES ABSOLUTE AUTO 0.77 K/uL (0.8-3.3); LYMPHOCYTES PERCENT AUTO 9.9 % (11.4-47.7); MONOCYTES ABSOLUTE AUTO 0.82 K/uL (0.20-0.90); MONOCYTES PERCENT AUTO 10.5 % (3.3-12.6); NEUTROPHILS ABSOLUTE AUTO 6.11 K/uL (1.0-7.6); NEUTROPHILS PERCENT AUTO 78.6 % (40.0-78.1); PLATELET COUNT,PLT 417 K/uL (130-375); RED BLOOD CELL COUNT 4.10 M/uL (4.14-5.76); WHITE BLOOD CELL COUNT,WBC 7.8 K/uL (3.2-11.0)
[2025-07-07 18:53] LABS: A/G RATIO 0.6 (1.2-2.2); ALANINE AMINOTRANSFERASE,ALT 52 U/L (12-78); ASPARTATE AMNIOTRANSFERASE,AST 51 U/L (15-37); BILIRUBIN TOTAL 0.5 mg/dL (0.2-1.0); BLOOD UREA NITROGEN,BUN 25 mg/dL (7-18); CARBON DIOXIDE,CO2 29 mmol/L (21-32); CHLORIDE,CL 96 mmol/L (100-108); CREATININE 1.1 mg/dL (0.8-1.3); EST CRCL DRUG DOSING (CG) 58.53 mL/min; ESTIMATED GFR 72 mL/min (>60); GLUCOSE RANDOM 112 mg/dL (74-106); POTASSIUM,K 4.7 mmol/L (3.6-5.2); PRO B-TYPE NATRIUR PEPT,BNPPRO 1094 pg/mL (5-125); PROTEIN TOTAL,TP 7.6 g/dL (6.4-8.2); SODIUM,NA 133 mmol/L (140-148); TROPONIN I HIGH SENSITIVITY 11.9 pg/mL (<=60.3)
[2025-07-07] MEDS: methylPREDNISolone Sodium Succinate 40 MG/1 ML SDV IVPUSH ONE (18:57)
[2025-07-07] MEDS: Sodium Chloride 0.9% 10 ML Syringe FLUSH PRN (18:57)
[2025-07-07] MEDS: Sodium Chloride 0.9% 10 ML Syringe FLUSH ONE (19:28)
[2025-07-07] MEDS: Iopamidol 612 MG/ML 100 ML Bottle IV ONE (19:28)
[2025-07-07 19:55] VITALS: BP 147/92; PULSE 73
== END 2025-07-07 20:38 | disposition home or self-care (01) ==
LOC: JP.ED 16:53
DX: I31.39 Other pericardial effusion (noninflammatory) (principal); J98.19 Other pulmonary collapse; R91.8 Other nonspecific abnormal finding of lung field; J44.9 Chronic obstructive pulmonary disease, unspecified; Z87.891 Personal history of nicotine dependence
CPT/HCPCS: 36415; 71045; 71260; 80053; 83605; 83880; 84484; 85025; 93005; 94640; 96374; 99285; J2919; J7620; Q9967; A9270-GY